=== PATIENT | male | born 1990 | race Caucasian/White ===

== ENCOUNTER 2021-10-23 11:48 | Emergency (ER) | payer OTHER ==
--- NOTE | 2021-10-23 14:00 | NUR ---
Called patient x 1, no answer
== END 2021-10-23 14:10 | disposition left against medical advice (07) ==
LOC: SED 11:48
DX: Z00.00 Encounter for general adult medical examination without abnormal findings (principal); Z53.21 Procedure and treatment not carried out due to patient leaving prior to being seen by health care provider